=== PATIENT | male | born 1955 | race Caucasian/White ===

== ENCOUNTER 2016-12-17 12:12 | Emergency (ER) | payer OTHER ==
[~2016-12-17] VITALS: Ht 160 cm; Wt 78.9 kg
[~2016-12-17 12:12] MED LIST: AMOX1TAB10 PO; IBUP800T25 PO; SODI44SP11 NASAL
[2016-12-17 12:23] VITALS: Ht 160 cm; Wt 78.9 kg
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
[2016-12-17] MEDS ORDERED: ACETAMINOPHEN 325 MG TAB PO ONE (13:00)
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
== END 2016-12-17 14:24 | disposition home or self-care (01) ==
LOC: FTE 12:12
DX: S80.00XA Contusion of unspecified knee, initial encounter (principal); S00.03XA Contusion of scalp, initial encounter; I10 Essential (primary) hypertension; V53.5XXA Driver of pick-up truck or van injured in collision with car, pick-up truck or van in traffic accident, initial encounter
CPT/HCPCS: 70450; 73562; Z7502; Z7610

== ENCOUNTER 2017-11-28 16:51 | Emergency (ER) | END 2017-11-28 23:59 | disposition home or self-care (01) ==